=== PATIENT | female | born 1975 | race African-American/Black ===

== ENCOUNTER 2017-03-12 08:08 | Emergency (ER) | payer MEDICAID ==
[~2017-03-12] VITALS: Ht 157.5 cm; Wt 76.8 kg
[~2017-03-12 08:08] MED LIST: NO HOME MEDICATIONS
[2017-03-12 08:10] VITALS: BP 137/97; PULSE 91; TEMP 98.9
[2017-03-12] MEDS ORDERED: INDOCIN 25MG CA25 MG PO (08:13)
== END 2017-03-12 08:55 | disposition home or self-care (01) ==
LOC: COL.ER 08:08
DX: G56.03 Carpal tunnel syndrome, bilateral upper limbs (principal)